=== PATIENT | male | born 1970 | race Caucasian/White ===

== ENCOUNTER 2017-02-01 19:53 | Emergency (ER) | payer OTHER ==
[2017-02-01 22:04] VITALS: BP 155/84
== END 2017-02-01 22:04 | disposition home or self-care (01) ==
LOC: ED 19:53
DX: S91.331A Puncture wound without foreign body, right foot, initial encounter (principal); K40.90 Unilateral inguinal hernia, without obstruction or gangrene, not specified as recurrent; K04.7 Periapical abscess without sinus; E11.9 Type 2 diabetes mellitus without complications; W22.8XXA Striking against or struck by other objects, initial encounter; Y93.89 Activity, other specified; Y99.8 Other external cause status; Y92.89 Other specified places as the place of occurrence of the external cause
CPT/HCPCS: 90715; J1885

== ENCOUNTER 2017-06-23 10:24 | Emergency (ER) | payer OTHER ==
[~2017-06-23] VITALS: Ht 175.3 cm; Wt 86.6 kg
[2017-06-23 11:20] VITALS: Ht 175.3 cm; Wt 86.6 kg
[2017-06-23 13:51] VITALS: BP 143/94
== END 2017-06-23 13:51 | disposition home or self-care (01) ==
LOC: ED 10:24
DX: M54.5 Low back pain (principal); E11.9 Type 2 diabetes mellitus without complications

== ENCOUNTER 2017-08-13 05:27 | Emergency (ER) | payer OTHER ==
[~2017-08-13] VITALS: Ht 175.3 cm; Wt 88.9 kg
[2017-08-13 08:28] VITALS: BP 129/82
== END 2017-08-13 08:28 | disposition home or self-care (01) ==
LOC: ED 05:27
DX: J01.90 Acute sinusitis, unspecified (principal); E11.9 Type 2 diabetes mellitus without complications
CPT/HCPCS: 87804

== ENCOUNTER 2017-08-15 11:06 | Inpatient (IN) | payer OTHER ==
[~2017-08-15] VITALS: Ht 175.3 cm; Wt 89.4 kg
[2017-08-15 13:19] LABS: microscopic required? NO
[2017-08-15 13:20] LABS: BASOPHIL % 0.5 % (0-2); PLATELET COUNT 249 x10^3mcL (130-400); RED CELL DISTRIBUTION WIDTH 13.1 % (11.5-14.5)
[2017-08-15 13:24] LABS: UA SPECIFIC GRAVITY 1.015 (1.005-1.035); urine erythrocyte NEGATIVE (NEGATIVE)
[2017-08-15 13:33] LABS: AMPHETAMINE QUAL UR NONE DETECTED (NEG <=1000)
[2017-08-15 13:33] LABS: CALCIUM 8.8 mg/dL (8.5-10.1); CARBON DIOXIDE 29.1 mmol/L (21-32); CHLORIDE SERUM 102 mmol/L (98-107); CREATININE SERUM 0.8 mg/dL (0.7-1.3); GFR1 > 60 mL/min; GLUCOSE SERUM 189 mg/dL (74-106); POTASSIUM SERUM 4.1 mmol/L (3.5-5.1); SODIUM SERUM 139 mmol/L (136-145)
[2017-08-15 13:43] LABS: ALBUMIN 3.8 g/dL (3.4-5.0); ALKALINE PHOSPHATASE 124 U/L (46-116); ALT/SGPT 41 U/L (16-63); AST/SGOT 18 U/L (15-37); BILIRUBIN TOTAL 0.3 mg/dL (0.20-1.00); TOTAL PROTEIN, SERUM 7.9 g/dL (6.4-8.2)
[2017-08-15 13:47] LABS: CK-MB 0.9 ng/mL (0-3.6)
[2017-08-15] MEDS ORDERED: FLONS (15:42)
[2017-08-15] MEDS ORDERED: METFORMIN HCL500 MG PO (15:42)
[2017-08-15 16:32] VITALS: BP 126/81
[2017-08-15 21:39] VITALS: BP 112/75
[2017-08-16 06:14] LABS: BASOPHIL % 0.5 % (0-2); PLATELET COUNT 220 x10^3mcL (130-400); RED CELL DISTRIBUTION WIDTH 13.3 % (11.5-14.5)
[2017-08-16 06:17] VITALS: BP 119/81
[2017-08-16 06:27] LABS: CALCIUM 8.8 mg/dL (8.5-10.1); CARBON DIOXIDE 29.9 mmol/L (21-32); CHLORIDE SERUM 108 mmol/L (98-107); CREATININE SERUM 0.7 mg/dL (0.7-1.3); GFR1 > 60 mL/min; GLUCOSE SERUM 148 mg/dL (74-106); POTASSIUM SERUM 4.2 mmol/L (3.5-5.1); SODIUM SERUM 146 mmol/L (136-145)
[2017-08-16 08:07] VITALS: Ht 175.3 cm; Wt 89.4 kg
[2017-08-16 09:02] VITALS: BP 109/70
[2017-08-16 13:04] VITALS: BP 121/76
[2017-08-16 17:36] VITALS: BP 119/76
[2017-08-16 20:37] VITALS: BP 130/72
[2017-08-17 05:02] VITALS: BP 118/63
[2017-08-17 08:58] VITALS: BP 125/90
[2017-08-17 13:05] VITALS: BP 125/90
[2017-08-17 13:13] VITALS: BP 143/86
== END 2017-08-17 14:54 | disposition home or self-care (01) | DRG 720 ==
LOC: ED 11:06 → DU 15:18
PROVIDERS: Emergency Medicine; Internal Medicine
DX: A41.9 Sepsis, unspecified organism (principal); J32.4 Chronic pansinusitis; I10 Essential (primary) hypertension; E11.9 Type 2 diabetes mellitus without complications; J32.9 Chronic sinusitis, unspecified; Z79.899 Other long term (current) drug therapy; Z79.84 Long term (current) use of oral hypoglycemic drugs
CPT/HCPCS: 83880; 87804; J0696; J1100; J1650; J1885; J2270; J3490; J7030

== ENCOUNTER 2018-03-07 17:25 | Emergency (ER) | payer OTHER ==
[~2018-03-07] VITALS: Ht 175.3 cm; Wt 93.9 kg
[~2018-03-07 17:25] MED LIST: FLONS; METFORMIN HCL500 MG PO
[2018-03-07 17:28] VITALS: Ht 175.3 cm; Wt 93.9 kg
[2018-03-07 19:11] VITALS: BP 130/78
== END 2018-03-07 19:11 | disposition home or self-care (01) ==
LOC: ED 17:25
DX: R51 Headache (principal); R03.0 Elevated blood-pressure reading, without diagnosis of hypertension; E11.9 Type 2 diabetes mellitus without complications
CPT/HCPCS: J1885

== ENCOUNTER 2018-06-01 16:31 | Emergency (ER) | payer OTHER ==
[~2018-06-01] VITALS: Ht 175.3 cm; Wt 90.0 kg
[2018-06-01 16:43] VITALS: Ht 175.3 cm; Wt 90.0 kg
[2018-06-01 18:08] VITALS: BP 136/94
== END 2018-06-01 18:08 | disposition home or self-care (01) ==
LOC: ED 16:31
DX: J32.9 Chronic sinusitis, unspecified (principal); E11.9 Type 2 diabetes mellitus without complications

== ENCOUNTER 2018-06-10 14:48 | Emergency (ER) | payer OTHER ==
[~2018-06-10] VITALS: Ht 175.3 cm; Wt 93.9 kg
[2018-06-10 14:59] VITALS: Ht 175.3 cm; Wt 93.9 kg
[2018-06-10 17:08] LABS: BASOPHIL % 0.2 % (0-2); PLATELET COUNT 241 x10^3mcL (130-400); RED CELL DISTRIBUTION WIDTH 13.5 % (11.5-14.5)
[2018-06-10 17:13] LABS: CALCIUM 8.2 mg/dL (8.5-10.1); CARBON DIOXIDE 30.5 mmol/L (21-32); CHLORIDE SERUM 106 mmol/L (98-107); CREATININE SERUM 0.9 mg/dL (0.7-1.3); GFR1 > 60 mL/min; GLUCOSE SERUM 194 mg/dL (74-106); POTASSIUM SERUM 3.7 mmol/L (3.5-5.1); SODIUM SERUM 143 mmol/L (136-145)
[2018-06-10 17:18] LABS: ALKALINE PHOSPHATASE 95 U/L (46-116); ALT/SGPT 21 U/L (16-63); AST/SGOT 2 U/L (15-37); BILIRUBIN TOTAL 0.32 mg/dL (0.20-1.00); TOTAL PROTEIN, SERUM 7.5 g/dL (6.4-8.2)
[2018-06-10 17:55] VITALS: BP 116/70
== END 2018-06-10 17:55 | disposition home or self-care (01) ==
LOC: ED 14:48
PROVIDERS: Emergency Medicine
DX: J20.9 Acute bronchitis, unspecified (principal); E11.9 Type 2 diabetes mellitus without complications
CPT/HCPCS: 36415; 87804

== ENCOUNTER 2018-11-03 21:18 | Emergency (ER) | payer OTHER ==
[~2018-11-03] VITALS: Ht 175.3 cm; Wt 89.9 kg
[2018-11-03 21:28] VITALS: Ht 175.3 cm; Wt 89.9 kg
[2018-11-04 01:14] VITALS: BP 134/82
== END 2018-11-04 01:14 | disposition home or self-care (01) ==
LOC: ED 21:18
DX: S09.8XXA Other specified injuries of head, initial encounter (principal); E11.9 Type 2 diabetes mellitus without complications; Z98.890 Other specified postprocedural states; W22.8XXA Striking against or struck by other objects, initial encounter; Y93.89 Activity, other specified; Y92.89 Other specified places as the place of occurrence of the external cause; Y99.8 Other external cause status
CPT/HCPCS: J1885

== ENCOUNTER 2019-06-23 18:47 | Emergency (ER) | payer OTHER ==
[~2019-06-23] VITALS: Ht 175.3 cm; Wt 89.8 kg
[2019-06-23 19:34] VITALS: BP 165/97; Ht 175.3 cm; Wt 89.8 kg
== END 2019-06-23 20:43 | disposition home or self-care (01) ==
LOC: ED 18:47
DX: J32.9 Chronic sinusitis, unspecified (principal); E11.9 Type 2 diabetes mellitus without complications; Z98.890 Other specified postprocedural states

== ENCOUNTER 2019-07-15 13:23 | Emergency (ER) | payer OTHER ==
[~2019-07-15] VITALS: Ht 172.7 cm; Wt 87.5 kg
[2019-07-15 13:26] VITALS: Ht 172.7 cm; Wt 87.5 kg
[2019-07-15 16:19] VITALS: BP 154/71
== END 2019-07-15 16:19 | disposition home or self-care (01) ==
LOC: ED 13:23
DX: J98.01 Acute bronchospasm (principal); M54.5 Low back pain; E11.9 Type 2 diabetes mellitus without complications; I10 Essential (primary) hypertension; Z98.890 Other specified postprocedural states

== ENCOUNTER 2019-07-24 16:17 | Emergency (ER) | payer OTHER | END 2019-07-24 17:00 | disposition left against medical advice (07) | LOC: ED 16:17 | DX: Z53.21 Procedure and treatment not carried out due to patient leaving prior to being seen by health care provider (principal) ==

== ENCOUNTER 2019-07-24 20:17 | Emergency (ER) | payer OTHER ==
[~2019-07-24] VITALS: Ht 175.3 cm; Wt 85.7 kg
[2019-07-24 20:22] VITALS: Ht 175.3 cm; Wt 85.7 kg
[2019-07-24 23:45] VITALS: BP 131/94
== END 2019-07-24 23:45 | disposition home or self-care (01) ==
LOC: ED 20:17
DX: J32.9 Chronic sinusitis, unspecified (principal); G89.29 Other chronic pain; M54.5 Low back pain